=== PATIENT | female | born 1930 | race Caucasian/White ===

== ENCOUNTER 2019-02-12 20:53 | Inpatient (IN) ==
[2019-02-12] MEDS ORDERED: ZOFRAN IV PRN (21:17)
[2019-02-12 22:01] LABS: BASO# 0.01 X1000 (0.0-0.2); BASO% 0.1 % (0.0-0.8); HEMATOCRIT 33.7 % (37.0-47.0); HEMOGLOBIN 10.9 g/dL (12.0-16.0); IMM GRAN# 0.08 X1000 (0.0-0.04); IMM GRAN% 0.8 % (0.0-0.5); LYMPH# 1.08 X1000 (1.2-3.4); LYMPH% 11.1 % (20.5-51.1); MCH 25.7 PG (27-31); MCHC 32.3 g/dL (33-37); MCV 79.5 FL (81-99); MONO# 0.81 X1000 (0.11-0.59); MONO% 8.4 % (1.7-9.3); MPV 8.9 FL (7.4-10.4); NEUT# 7.71 X1000 (1.4-6.5); NEUT% 79.6 % (42.2-75.2); PLT 272 X1000 (130-400); RBC 4.24 XMIL (4.2-5.4); RDW 16.2 % (11.5-14.5); WBC 9.69 X1000 (4.8-10.8)
[2019-02-12 22:33] LABS: AGAP 12; BUN 18 mg/dL (8-22); CALCIUM 9.9 mg/dL (8.8-10.2); CHLORIDE 111 mmol/L (98-107); COSMO 288; CREATININE 0.6 mg/dL (0.5-0.9); ESTIMATED GFR > 60; GLUCOSE 121 mg/dL (70-104); MAGNESIUM 1.7 mg/dL (1.5-2.7); PHOSPHORUS 3.5 mg/dL (2.7-4.5); SODIUM 143 mmol/L (136-145); TCO2 20 mmol/L (25-35)
[2019-02-12 22:34] LABS: POTASSIUM 2.4 mmol/L (3.5-5.1)
[2019-02-12] MEDS: POTASSIUM CHLORIDE 20 MEQ in LR 1,000 ML IV SCH (22:54)
[2019-02-12] MEDS ORDERED: KLOR-CON PO ONE (23:06)
[2019-02-13] MEDS: POTASSIUM CHLORIDE 20 MEQ/SWI 20 MEQ/100 ML IVPB IV SCH ×2 (00:50→03:15)
[2019-02-13 02:23] LABS: URINE SOURCE CATH
[2019-02-13 03:06] LABS: BILIRUBIN URINE NEGATIVE (NEGATIVE); BLOOD URINE TRACE (NEGATIVE); COLOR ORANGE; GLUCOSE URINE NEGATIVE (NEGATIVE); KETONE URINE NEGATIVE (NEGATIVE); LEUKOCYTES URINE MODERATE (NEGATIVE); NITRITE URINE NEGATIVE (NEGATIVE); PROTEIN URINE 30 mg/dL (NEGATIVE); TURBIDITY URINE HAZY (CLEAR); UR EPITHELIAL CELLS <10 /HPF (<10); URINE BACTERIA 4+ /HPF; URINE RBC <10 /HPF (<10); URINE WBC TNTC /HPF (<10); UROBILINOGEN URINE NORMAL (NORMAL)
--- NOTE | 2019-02-13 05:15 | Diag Imaging Result Doc PS360 ---
EXAM: CHEST-PORTABLE HISTORY: diminished bilateral bases TECHNIQUE: Portable chest single view COMPARISON: None. FINDINGS: Poor inspiratory effort. There is a left-sided PICC line. The tip is near limits. Vena cava. The heart is not enlarged. Small pleural effusions with basilar atelectasis and possibly and underlying infiltrate in the left base. Mild pulmonary edema. IMPRESSION: Pulmonary edema with basilar atelectasis and possibly underlying infiltrates. Electronically signed by Sean Kothari 02/13/2019 5:12 AM
--- NOTE | 2019-02-13 06:40 | HISTORY AND PHYSICAL ---
ADDENDUM REPORT: Ms. Israel was admitted to [facility] in mid January where she has remained because of persistent diarrhea with no resolution. Underwent a colonoscopy which showed patchy colitis. She is being referred to [facility] because 1) there is no medical authorization specialist at [facility] and 2) it is believed that the patient has relationship with one of our medical authorization specialist, Dr. Lau Currently the patient is weak and lethargic and she had a total of five loose, nonbloody stools today. She does admit to having diffuse abdominal pain. No nausea or vomiting today. She was started on steroids and they report that the diarrhea has started to slow down. The patient has not had any fevers or chills. Lab work is still pending. White count is 9000, hemoglobin and hematocrit is 11 and 33, and platelets 272,000. Chemistries pending. I have reviewed the patient's prior home medications to see if this is what incited the diarrhea but this is unrevealing. 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 Workup for a vipoma I believe was initiated at [facility] and we should pursue records of those tests. In the meantime we will try placing on Welchol, which may induce constipation transiently. Continue the Imodium p.r.n. Correct any electrolyte derangements. Try and stay away from PPIs as they can exacerbate diarrhea in and of themselves for now. cc: Haleigh Lobo MD MTDD
[2019-02-13 06:48] LABS: HEMOGLOBIN 11.1 g/dL (12.0-16.0); IMM GRAN# 0.06 X1000 (0.0-0.04); IMM GRAN% 0.6 % (0.0-0.5); LYMPH# 1.35 X1000 (1.2-3.4); LYMPH% 12.5 % (20.5-51.1); MCH 25.5 PG (27-31); MCHC 31.7 g/dL (33-37); MCV 80.3 FL (81-99); MONO# 1.11 X1000 (0.11-0.59); MONO% 10.3 % (1.7-9.3); MPV 9.2 FL (7.4-10.4); NEUT# 8.27 X1000 (1.4-6.5); NEUT% 76.6 % (42.2-75.2); PLT 258 X1000 (130-400); RBC 4.36 XMIL (4.2-5.4); RDW 16.3 % (11.5-14.5); WBC 10.79 X1000 (4.8-10.8)
[2019-02-13 07:12] LABS: AGAP 9; ALB/GLOB RATIO 1.3; ALBUMIN 3.1 g/dL (3.5-5.0); ALKALINE PHOSPHATASE 77 U/L (32-104); BUN 17 mg/dL (8-22); CALCIUM 9.8 mg/dL (8.8-10.2); CHLORIDE 112 mmol/L (98-107); COSMO 283; CREATININE 0.6 mg/dL (0.5-0.9); ESTIMATED GFR > 60; GLUCOSE 105 mg/dL (70-104); GOT 11 U/L (10-30); GPT 7 U/L (10-36); MAGNESIUM 1.7 mg/dL (1.5-2.7); POTASSIUM 3.2 mmol/L (3.5-5.1); SODIUM 141 mmol/L (136-145); TCO2 20 mmol/L (25-35); TOTAL PROTEIN 5.5 g/dL (6.3-8.3)
[2019-02-13 12:06] LABS: IRON SATURATION 31 %; TIBC 133 ug/dL; TOTAL IRON 41 ug/dL (49-151); UNBOUND IRON 92 ug/dL (112-346)
[2019-02-13] MEDS: WELCHOL PO SCH ×3 (12:29→18:27)
[2019-02-13] MEDS: POTASSIUM CHLORIDE 20 MEQ in LR 1,000 ML IV SCH (12:30)
--- NOTE | 2019-02-13 14:03 | PROGRESS NOTE ---
DATE: 02/13/2019 INTERVAL HISTORY: Mrs. Israel was transferred from an outside facility for gastroenterology evaluation. She continues to have diarrhea. Apparently, she was diagnosed with transverse colitis in January 2019 and was admitted at outside hospital. She was treated with intravenous antibiotics and was discharged home. 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 She was started on p.o. vancomycin, probiotics and octreotide. Stool studies were negative. She underwent colonoscopy and a biopsy. The colonoscopy had detected mild patchy colitis from hepatic flexure to sigmoid colon and a biopsy suggested colitis. She was also started on octreotide and probiotics, but her diarrhea continued and so she was sent to [facility] for gastroenterology evaluation. SUBJECTIVE: The patient speaks a little. She usually answers in yes or no. She is alert. The patient's sister is at bedside. The patient had one soft liquidy bowel movement in the morning time. However, at nighttime, she has had 4 such bowel movements. VITALS: Detect temperature 98.3 degrees, pulse 69, respiratory rate 14, blood pressure 160/60, saturating 100% on nasal cannula. PHYSICAL EXAMINATION: General: Does not appear in any acute distress. HEENT: Oral cavity, tongue has significant coating with blackish pigmentation. Oral cavity is dry Lungs: Air entry bilaterally equal. No wheeze, rhonchi ,crackles. S1, S2 normal. No murmur or gallop. Abdomen: Distended with gas. Active bowel sounds. No hepatosplenomegaly. Nontender. No lower extremity edema. LABS: Suggestive of normal WBC count, microcytic anemia, normal platelet count, hypokalemia, hyperchloremia. Iron studies suggest that she has replete with iron stores. She does have pyuria. MICROBIOLOGY: Urine culture is in lab. Stool studies have been collected. IMAGING: Chest x-ray on admission had some pulmonary edema with basilar atelectasis and underlying infiltrate, but the patient is not complaining of chest pain or shortness of breath. ASSESSMENT AND PLAN: 1. Persistent diarrhea with CT scan at outside facility and colonoscopy suggestive of colitis affecting transverse colon and descending colon up to sigmoid colon junction despite intravenous antibiotic treatment in earlier January 2019 for suspected diverticulitis. I will follow up with stool studies. We will start her on symptomatic treatment for diarrhea with intravenous fluids and Welchol or colesevelam. Appreciate Gastroenterology recommendation. At outside hospital worker workup for VIPoma was initiated, however, my suspicion is less considering the age distribution of VIPoma. I will also start her on intravenous nutrition since her p.o. intake has significantly gone down. I will consult dietitian. 2. Hypokalemia, being repleted. 3. Iron deficiency anemia. Currently, iron stores are replete. I will monitor CBC. 4. Essential hypertension. I will start antihypertensive medication 5. Suspected dementia, aware. 6. On review of her home medications, it did not seem she was on something that would cause diarrhea. 7. Plan of care discussed with the patient's sister at bedside. All of her questions have been answered. Her daughter who I assume is a surrogate decision maker was not available. cc: Michael Patel MD MTDD
[2019-02-13] MEDS: THERA M PLUS PO SCH (15:25)
[2019-02-13] MEDS: KLOR-CON PO SCH ×2 (15:25→23:37)
[2019-02-13] MEDS: CULTURELLE PO SCH ×2 (15:25→23:37)
[2019-02-13] MEDS: MAGNESIUM SULFATE 2 GM/S.W.I. 2 GM/50 ML IVPB IV SCH ×2 (15:26→23:37)
[2019-02-13] MEDS: CLINIMIX E 4.25%-5% SOLUTION 1,000 ML IV SCH (15:26)
--- NOTE | 2019-02-13 15:33 | GASTROENTEROLOGY CONSULTATION ---
DATE: 02/13/2019 REASON FOR CONSULTATION: Persistent diarrhea despite management at [facility]. Patient was transferred to [facility] for Gastroenterology consult. HISTORY OF PRESENT ILLNESS: This is an 88-year-old white female who had been at [facility] on 2 different admissions for diarrhea. CT scan during hospitalization had shown colitis. She was treated with antibiotics. She was discharged, but patient continued to have problems and was readmitted. She was treated for hypokalemia. She had a colonoscopy on 02/04/[address] Morton. Findings showed colitis, and she had a colon polyp that was removed. Biopsy was positive for mild chronic colitis. Patient was also treated with budesonide with only minimal improvement. Patient has apparently also had workup for vipoma. I do not see those results. Patient has records scanned into the computer. I have reviewed most of those. Patient had also been treated with Sandostatin drip. Patient received a PICC line. Current medications on discharge from [facility] included Desyrel, Lactinex, Lomotil, Norvasc, Pentasa, potassium, Questran, Solu-Medrol, Zestril, and Zofran. At the time of my evaluation, patient had a sister at the bedside. She states the patient is not eating much. Patient is really not speaking very much, although she is alert and oriented. She is answering with yes and no answers. She does follow commands. She is in no acute distress. She reports some abdominal pain. She is incontinent of stool and wears a diaper. PAST MEDICAL HISTORY: Recent colitis with no improvement, diverticulosis, anemia, questionable diagnosis of myelodysplasia, questionable dementia, GERD, hypertension, arthritis, recurrent urinary tract infections. PAST SURGICAL HISTORY: History of cholecystectomy. The patient had a colonoscopy at [facility] showing colitis. ALLERGIES: Iron causing rash. Morphine causes itching. Penicillin causes rash. Pyridium causes shortness of breath. Sulfonamide antibiotics causing swelling. Bactrim rash. HOME MEDICATIONS: None listed. MEDICATIONS FROM DISCHARGE FROM [facility]: As stated above. SOCIAL HISTORY: No reported tobacco or alcohol use. She lives with her son and daughter. FAMILY HISTORY: She has a grandson with Crohn's disease. No family history of colon cancer. OBJECTIVE: Vital signs: Temperature 98.3 degrees, pulse 69, respirations 14, blood pressure 167/60. Generally, patient is in no acute distress. HEENT: Normocephalic atraumatic. Pupils equal, round, and reactive to light. Sclerae are nonicteric. Abdomen is soft. Positive bowel sounds. Patient reports mild tenderness with palpation. Extremities no lower extremity edema noted. DIAGNOSTIC STUDIES: Hematology: WBC 10.79, hemoglobin 11.1, hematocrit 35.0, MCV 80.3, platelets 258,000. Chemistry: Sodium 141, potassium 3.2, chloride 112, CO2 of 20, BUN 17, creatinine 0.6, glucose 105, calcium 9.8, magnesium 1.7. Iron 41, TIBC 33, percent saturation 31, ferritin 1095. Total bilirubin 0.20, AST 11, ALT 7, alkaline phosphatase 77, albumin 3.1. There are stool studies that are pending. Patient had CT scan at [place] that showed colitis. ASSESSMENT AND PLAN: 1. Persistent diarrhea despite workup and hospitalization at [facility]. She had been treated with Sandostatin, steroids with no real improvement in her symptoms. I believe there was outside workup for vipoma. No results seen in her outside records. 2. Hypokalemia. Receiving current replacement. 3. Anemia. Patient has had multiple workup including CT scans, labs, antibiotic and steriod treatment, sandostatin and colonoscopy at [facility]. She continues to have diarrhea. Further stool studies have been ordered, waiting on collection and results. Reviewing records at [facility]. I have discussed this case with Dr. Lau. He will see the patient, and further plans will be made as needed. Thank you for this consultation. Dictated by JACI Ching for Shawn Lau MD cc: JACI Driver MD [facility]
--- NOTE | 2019-02-13 22:02 | HISTORY AND PHYSICAL ---
PRIMARY CARE PHYSICIAN: Annalee Tavares MD DATE AND TIME: 02/12/2019 at 2100. CHIEF COMPLAINT: Abdominal pain and diarrhea. HISTORY OF PRESENT ILLNESS: Ms. Israel is an 88-year-old female who was transferred from [facility]. Since mid January she has had 2 inpatient admissions for persistent diarrhea and electrolyte abnormalities, which family include continued problems with hypokalemia and colitis. Despite the patient receiving initial IV antibiotics, she still did have colitis showing on repeat CT. She has completed now a full course of oral vancomycin which was 250 mg 4 times a day. She did have a CT of the abdomen and pelvis performed during her hospitalization that showed long-segment transverse colitis which was thought to be infectious or inflammatory. Pseudomembranous or ischemic etiologies were thought to be less likely. She underwent colonoscopy with biopsy. She also had a partial colon polyp removed. Her biopsy results returned only positive for colitis. There was no mention of inflammatory bowel disease. She was started on budesonide, with minimal improvement. Most recently, she was started on Solu- Medrol which has reported to mildly improve her diarrhea as of present. There also is currently awaiting results for a workup for vipoma. Unfortunately, due to her diarrhea she still continues to have problems with abnormal electrolytes which include magnesium and hypokalemia. She did have a PICC line placed for anticipation that she may need TPN in the future. Unfortunately they did not have a gastroenterology consultation available at [facility] and she did have a transfer arranged to come here for consultation with Dr. Lau. The patient's daughter was present at bedside. Her name is Maritza. Upon evaluation the patient is resting in the inpatient bed. She is in no acute distress. She is alert and oriented to person and place, though not time. She is somewhat somnolent, but is awake and alert. She is able to follow commands. She does report that she is still having some diffuse abdominal pain as well as diarrhea. She denies any headache, dizziness, chest pain, shortness of breath or cough. She denies any nausea or vomiting. Though she is having diarrhea, this is of brown color. She denies any black or bloody stools. She denies any dysuria or urinary frequency. She has no reported pain or swelling in her extremities. The patient's daughter does report, unfortunately, due to her diarrhea she does have some skin irritation on her buttocks that they have been treating with what sounds to be Calmoseptine ointment. At this time the patient will be placed on inpatient for admission. REVIEW OF SYSTEMS: A 14-point review of systems was conducted with the patient and all were negative except for pertinent positives mentioned in the above HPI. PAST MEDICAL HISTORY: 1. Recurrent colitis with as previously mentioned, 2 admissions since January. 2. Diverticulosis. 3. 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 4. Hypertension. 5. Gastroesophageal reflux disease. 6. Chest wall infection in 2010. 7. Questionable dementia. 8. Osteoarthritis. 9. Recurrent urinary tract infections for which she was previously on methenamine. PAST SURGICAL HISTORY: 1. Cholecystectomy in 2011. 2. Total of what sounds to be 2 colonoscopies, with one in 2010 and one just recently during her admission on 02/04/2019. 3. EGD. SOCIAL HISTORY: The patient is a . She was a housewife. She does live with her son. Her daughter is present at bedside. She has no known history of tobacco, alcohol or illicit drug use. She denies any previous need for ambulatory assistance, CPAP nebulized and/or home oxygen prior to her admission to the hospital. She uses [facility] in [place]. FAMILY HISTORY: 1. Positive for her mother having hypertension. Her father had lung cancer. He used smokeless tobacco. 2. Her brother had mouth and lung cancer. He used smokeless tobacco. 3. Her sister had type 2 diabetes. 4. She has another sister who has had a history of heart attack with stent placement. ALLERGIES: 1. The patient has allergies to Bactrim, which causes her to have chest pain and rash. 2. Sulfa which causes swelling and chest pain. 3. Morphine which causes nervousness, rash and itching. 4. Penicillin, which causes rash. 5. Pyridium which causes "funny feeling in my chest." 6. Venofer which causes rash; however, the patient tolerates oral iron supplements. LABORATORY DATA: White blood cell count is 9690, hemoglobin 10.9, hematocrit 33.7, platelet count is 272,000. Sodium 143, potassium 2.4, chloride 111, serum bicarbonate is 20, BUN 18, creatinine 0.6, glucose 121, calcium 9.9, phosphorus 3.5, magnesium 1.7. Urinalysis was obtained via catheterization and showed protein, trace blood, moderate leukocytes, ggy-oopqvwqv-sp-count white blood cells and 4+ bacteria. DIAGNOSTIC DATA: Chest x-ray did show pulmonary edema with basilar atelectasis and possible underlying infiltrate. This is per Radiology. We are awaiting a EKG to be performed. PHYSICAL EXAMINATION: VITAL SIGNS: Temperature 97.7 degrees, heart rate 83, respirations 18, blood pressure 174/65, oxygen saturation is 98% nasal cannula at 2 L. GENERAL: Ms. Israel is a pleasant 88-year-old female. She was resting in the inpatient bed. She was in no acute distress. She was awake, alert and oriented to person and place, though not time. She was able to answer questions and follow commands, though was somewhat somnolent. HEENT: Head is atraumatic, normocephalic. Pupils equal, round and reactive to light, were 3 mm bilaterally and brisk. Oral mucosa is slightly dry. Oropharynx is clear. NECK: Supple. Trachea midline. No overt JVD noted upon examination. CARDIOVASCULAR: The patient had S1, S2 present. No murmurs, gallops or rubs appreciated, with a regular rate and rhythm. PULMONARY: The patient has symmetrical chest expansion bilaterally. Lung sounds are clear to auscultation in bilateral upper lung steven. They were slightly diminished in bilateral bases, though. The patient was not taking good expiratory breath. Unfortunately this may be secondary to that. ABDOMEN: Soft, though diffusely tender. Bowel sounds were present in all 4 quadrants and were hyperactive. EXTREMITIES: No cyanosis, clubbing or edema noted. Pulse, motor and sensory were intact in all extremities. Radial pulses and pedal pulses were 2+ bilaterally. SKIN: [place], warm and dry. She did have decreased skin turgor noted. NEUROLOGICAL: The patient is alert and oriented to person and place, not time. She is able to move all extremities. She is able to follow commands. There may be some underlying dementia. Though other than this, there did not appear to be any focal neurological deficits noted. ASSESSMENT AND PLAN: 1. Colitis. The patient has a previously received a round of intravenous antibiotics and has just completed a round of oral vancomycin. She is still reporting some diffuse abdominal pain and is still having diarrhea, though reportedly the Solu-Medrol they had initiated at [place] had slowed her diarrhea down somewhat, though she has had 5 nonbloody bowel movements today. Given this, we will place the patient on Welchol to try to slow her diarrhea somewhat. We have placed a consult with Dr. Lau with Gastroenterology. We will await his evaluation and further recommendations for management. All of her records from [facility] are on the patient's chart and available for viewing, which included her CT abdomen and pelvis, colonoscopy and biopsy reports as well as pertinent laboratory results with history and physical, discharge summary, progress notes as well as consultations. Please see those for further detailed information about her admission at [facility]. 2. Diarrhea. As previously mentioned, the patient has been Clostridium difficile negative. We will start her on some Welchol to try to slow her diarrhea down some. We will continue with intravenous hydration and monitor her electrolytes closely. 3. Fluid volume depletion. This is likely secondary to her persistent diarrhea. We will continue with intravenous fluid hydration. There was some mention of pulmonary edema with bibasilar atelectasis and possibly underlying infiltrates, though at this time the patient does not have any reported respiratory symptoms. She has no cough, no shortness of breath. She did have some slightly diminished lung sounds in bilateral bases, though the patient is not taking good inspiratory effort. We will continue to monitor her fluid volume status closely. We will implement frequent turn, cough and deep breathing as well as incentive spirometry, and monitor her respiratory status closely for any signs of fluid overload. 4. Hypokalemia. This is likely secondary to her diarrhea. We will monitor this closely. The fluids we have ordered do have 20mEq of potassium chloride, though we will provide additional potassium supplementation. Her most recent potassium we have just drawn was 2.4. We did give her 40 mg intravenous potassium as well as 40 mg oral. We will recheck this in the morning. She is on continuous cardiac telemetry, though she is hemodynamically stable at this time. 5. Asymptomatic bacteriuria. The patient does have a history of having frequent urinary tract infections, and previously mentioned prior to her admission she was on methenamine. At this time she is asymptomatic, though we have placed a urine culture and will await those results and continue to follow. She does not have any leukocytosis at this time and she has been afebrile. The patient has been placed on the medical floor with telemetry. She will have vital signs every 4 hours. We will do strict intake and output. Deep venous thrombosis prophylaxis will be provided with sequential compression devices. She will be NPO at this time until evaluated by Gastroenterology. As previously mentioned, there was noted on her chest x-ray to be pulmonary edema with bibasilar atelectasis and possible underlying infiltrates. The patient does appear to be dehydrated. We will continue with intravenous hydration. We will closely monitor her fluid volume status and her respiratory status. Further orders and recommendations pending hospital course, diagnostic studies and physician evaluation. Dictated by JACI Wong for Haleigh Lobo MD cc: Haleigh Lobo MD MTDD
[2019-02-14] MEDS: CLINIMIX E 4.25%-5% SOLUTION 1,000 ML IV SCH ×2 (03:28→14:33)
[2019-02-14 06:55] LABS: BASO# 0.01 X1000 (0.0-0.2); BASO% 0.1 % (0.0-0.8); HEMATOCRIT 34.2 % (37.0-47.0); HEMOGLOBIN 10.7 g/dL (12.0-16.0); IMM GRAN# 0.06 X1000 (0.0-0.04); IMM GRAN% 0.5 % (0.0-0.5); LYMPH# 1.13 X1000 (1.2-3.4); LYMPH% 9.1 % (20.5-51.1); MCH 25.2 PG (27-31); MCHC 31.3 g/dL (33-37); MCV 80.7 FL (81-99); MONO# 1.34 X1000 (0.11-0.59); MONO% 10.7 % (1.7-9.3); MPV 8.9 FL (7.4-10.4); NEUT# 9.93 X1000 (1.4-6.5); NEUT% 79.6 % (42.2-75.2); PLT 228 X1000 (130-400); RBC 4.24 XMIL (4.2-5.4); RDW 16.2 % (11.5-14.5); WBC 12.47 X1000 (4.8-10.8)
[2019-02-14 07:28] LABS: AGAP 11; BUN 25 mg/dL (8-22); CALCIUM 9.2 mg/dL (8.8-10.2); CHLORIDE 108 mmol/L (98-107); COSMO 286; CREATININE 0.4 mg/dL (0.5-0.9); ESTIMATED GFR > 60; GLUCOSE 167 mg/dL (70-104); MAGNESIUM 2.7 mg/dL (1.5-2.7); POTASSIUM 3.1 mmol/L (3.5-5.1); SODIUM 139 mmol/L (136-145); TCO2 20 mmol/L (25-35)
[2019-02-14] MEDS: CULTURELLE PO SCH ×2 (08:12→21:16)
[2019-02-14] MEDS: THERA M PLUS PO SCH (08:12)
[2019-02-14] MEDS: WELCHOL PO SCH ×3 (08:12→17:13)
[2019-02-14] MEDS: ZINC SULFATE PO SCH (08:19)
--- NOTE | 2019-02-14 16:03 | GASTROENTEROLOGY PROGRESS NOTE ---
DATE: 02/14/2019 SUBJECTIVE: The patient was resting comfortably. She just had her breakfast. From nursing note, it appears that she had only 1 brown stool since yesterday. I spoke to the nurse and she tells me that she has not had any diarrhea. The patient herself was confused and did not report any GI problems. She was complaining of leg discomfort and pain. OBJECTIVE: Vital signs: Temperature was 98.2 degrees, pulse is 70 per minute, breathing 20 and blood pressure 162/53. Abdomen: Full, soft, nontender. Bowel sounds are audible. LABS REVIEWED: Show WBC of 12.47, hemoglobin 10.7, hematocrit 34.2, MCV 80.7 and platelets were 228. Sodium 139, potassium has gone down to 3.1, chloride 108, bicarbonate is 25, creatinine 0.4. Transaminases are normal. IMPRESSION: Diarrhea. From the information that I have received at the hospital from the nurses, it appears that she has not had any diarrhea, but I have advised the nurses to notice and report if she continues to have any evidence of diarrhea. At this point, I will continue the current treatment. Her records from [facility] was reviewed. I did not see any finding except for colitis that was noted on the imaging studies and the biopsy was nonspecific. At this point, no new changes. I do not think she has secretory diarrhea that would be VIPoma or other secretory hormones that would cause that, but she had evidence of colitis that was evident on imaging study that I see, and biopsy also confirmed most likely an infection. She had infectious colitis and has had diarrhea from that. That would be my working diagnosis and I would continue current treatment pending any report of diarrhea or any problems from here on. cc: Shawn Lau MD
[2019-02-14] MEDS: TYLENOL PO PRN (17:13)
--- NOTE | 2019-02-14 17:58 | PROGRESS NOTE ---
DATE: 02/14/2019 SUBJECTIVE: Today Ms. Israel refers to be feeling a little better. Still has bowel movements and abdominal discomfort. The daughter was at the bedside at the time of the encounter. OBJECTIVE: Vital signs: Blood pressure is 162/62, pulse is 75, respirations 16, temperature 97.6 degrees. General: Ms. Israel is an 88-year-old female. She is in bed, no distress. HEENT: Mucosa is pink and moist. Anicteric. Acyanotic. Neck: Supple. Chest: Good air entry bilaterally. No crepitations. No rhonchi. Cardiovascular: Regular rate and rhythm. No murmurs. No rubs. No gallops. Abdomen: Soft. Minimally tender in the epigastrium. Bowel sounds are present. Extremities: No pedal edema. Distal pulses are present. RN PALLIATIVE CARE: Patient is awake, alert, and oriented. There is no focal neurological deficit. LABORATORY DATA: WBC is 12.47, hemoglobin is 10.7, platelet count of 228,000. Chemistry is also reviewed. Potassium is 3.1, phosphorus is 2.0. Medications have all been reviewed. ASSESSMENT AND PLAN: 1. Subacute to chronic watery diarrhea. Etiology is unclear. Previous CT scan from outside facility seems to suggest colitis. A colonoscopy pathology report seems to have been nonspecific. GI has been consulted. We are going to follow up on their further recommendations. For now, the patient is not on any more antibiotics. We will get inflammatory markers and also TSH to rule out any thyroid disease. I understand outside facility workup for [facility] was initiated. We will follow up accordingly. 2. Hypokalemia with hypophosphatemia, likely due to gastrointestinal loss. We are going to continue to replace and also do a TSH to rule out any subclinical hyperthyroidism. 3. Iron deficiency anemia. 4. 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 5. Chronic recurrent urinary tract infections. cc: Guido Chen MD
[2019-02-15] MEDS: TYLENOL PO PRN ×3 (03:06→18:26)
[2019-02-15] MEDS: CLINIMIX E 4.25%-5% SOLUTION 1,000 ML IV SCH ×5 (03:06→23:29)
[2019-02-15] MEDS: LABETALOL IV PRN (03:17)
[2019-02-15 06:38] LABS: BASO# 0.01 X1000 (0.0-0.2); BASO% 0.1 % (0.0-0.8); HEMOGLOBIN 9.9 g/dL (12.0-16.0); IMM GRAN# 0.07 X1000 (0.0-0.04); IMM GRAN% 0.5 % (0.0-0.5); LYMPH# 0.79 X1000 (1.2-3.4); LYMPH% 5.2 % (20.5-51.1); MCH 25.5 PG (27-31); MCHC 31.9 g/dL (33-37); MCV 79.9 FL (81-99); MONO% 10.5 % (1.7-9.3); MPV 9.3 FL (7.4-10.4); NEUT% 83.7 % (42.2-75.2); PLT 189 X1000 (130-400); RBC 3.88 XMIL (4.2-5.4); WBC 15.17 X1000 (4.8-10.8)
[2019-02-15 07:16] LABS: AGAP 9; ALBUMIN 2.7 g/dL (3.5-5.0); ALKALINE PHOSPHATASE 70 U/L (32-104); BUN 38 mg/dL (8-22); CALCIUM 8.9 mg/dL (8.8-10.2); CHLORIDE 104 mmol/L (98-107); COSMO 284; CREATININE 0.6 mg/dL (0.5-0.9); ESTIMATED GFR > 60; GLUCOSE 187 mg/dL (70-104); GOT 12 U/L (10-30); GPT 10 U/L (10-36); POTASSIUM 2.6 mmol/L (3.5-5.1); SODIUM 135 mmol/L (136-145); TCO2 22 mmol/L (25-35); TOTAL BILIRUBIN 0.29 mg/dL (0.20-1.00); TOTAL PROTEIN 5.4 g/dL (6.3-8.3)
[2019-02-15 09:01] LABS: MAGNESIUM 2.2 mg/dL (1.5-2.7); PHOSPHORUS 3.4 mg/dL (2.7-4.5)
[2019-02-15] MEDS: THERA M PLUS PO SCH (09:47)
[2019-02-15] MEDS: WELCHOL PO SCH ×3 (09:47→16:52)
[2019-02-15] MEDS: ZINC SULFATE PO SCH (09:47)
[2019-02-15] MEDS: CALMOSEPTINE OINTMENT TOP PRN (09:47)
[2019-02-15] MEDS: CULTURELLE PO SCH ×2 (09:47→23:04)
[2019-02-15] MEDS ORDERED: POTASSIUM CHLORIDE 60 MEQ in NS 500 ML IV ONE (13:40)
--- NOTE | 2019-02-15 14:18 | GASTROENTEROLOGY PROGRESS NOTE ---
DATE: 02/15/2019 SUBJECTIVE: The patient was lying in bed in no acute distress. No family was at the bedside at the time of my evaluation. Nurse tech was at the bedside. She states she has had 3 orange- colored, foul-smelling, watery stools. The patient currently denies abdominal pain. She is not eating much. OBJECTIVE: Vital Signs: Temperature 98.1 degrees, pulse 103, respirations 15 blood pressure 133/46. General: Patient was awake and alert. No acute distress. Abdomen: Soft, nontender with palpation at present time. LABORATORY DATA: Hematology: WBC 15.17, hemoglobin 9.9, hematocrit 31.0, MCV 79.9, platelet 189,000. Chemistry: Sodium 135, potassium 2.6, chloride 104, CO2 of 22, BUN 38, creatinine 0.6, glucose 187. C-reactive protein 25.73. Vitamin A was normal. TSH 1.28. ASSESSMENT AND PLAN: 1. Persistent diarrhea. The patient has had multiple workup beginning at [facility]. She had a colonoscopy with pathology showing nonspecific colitis. She has been treated with antibiotics. Recommend to continue antibiotics for now. 2. Electrolyte imbalance. Continue replacement. Dictated by JACI Ching for Shawn Lau MD cc: JACI Driver MD
[2019-02-15] MEDS: DIFICID PO SCH ×2 (15:37→23:04)
--- NOTE | 2019-02-15 21:22 | PROGRESS NOTE ---
DATE: 02/15/2019 SUBJECTIVE: The patient is resting comfortably in bed. She has continued to have diarrhea. OBJECTIVE: Vital Signs: Temperature 98.3 degrees General: This is a chronically ill- appearing, elderly female lying in bed, in no acute distress. Heart: S1, S2 normal. Regular rate and rhythm. Lungs: Clear to auscultation bilaterally. Abdomen: Positive bowel sounds. Soft, nontender, nondistended. Extremities: No edema. No cyanosis. Neurologic: The patient is awake, but nonverbal. LABORATORY DATA: White blood cell count 15, hemoglobin 9.9, hematocrit 31, platelets 189,000. Sodium 135, potassium 2.6, chloride 104, CO2 is 22, BUN 38, creatinine 0.6, glucose 187. AST 12, ALT 10, alkaline phosphatase 70, albumin 2.7. ASSESSMENT AND PLAN: 1. Colitis. Unchanged. Gastroenterology is following. Continue with antibiotic therapy. 2. Urinary tract infection secondary to Escherichia coli. We will repeat the urinalysis to be sure that the urinary tract infection is resolved. 3. Hypokalemia. We will replace the patient's potassium. 4. Leukocytosis. The patient's white blood cell count is increasing. We will order blood cultures. 5. Anemia. We will monitor the hemoglobin and hematocrit closely. cc: Madeline Moffett MD MTDD
[2019-02-16] MEDS: CLINIMIX E 4.25%-5% SOLUTION 1,000 ML IV SCH ×3 (00:51→12:05)
[2019-02-16 06:49] LABS: BASO# 0.01 X1000 (0.0-0.2); BASO% 0.1 % (0.0-0.8); HEMATOCRIT 31.2 % (37.0-47.0); HEMOGLOBIN 9.9 g/dL (12.0-16.0); IMM GRAN% 0.7 % (0.0-0.5); LYMPH% 7.1 % (20.5-51.1); MCH 25.6 PG (27-31); MCHC 31.7 g/dL (33-37); MCV 80.8 FL (81-99); MONO# 1.54 X1000 (0.11-0.59); MONO% 10.9 % (1.7-9.3); MPV 10.3 FL (7.4-10.4); NEUT# 11.47 X1000 (1.4-6.5); NEUT% 81.2 % (42.2-75.2); PLT 181 X1000 (130-400); RBC 3.86 XMIL (4.2-5.4); RDW 16.3 % (11.5-14.5); WBC 14.12 X1000 (4.8-10.8)
[2019-02-16 07:26] LABS: AGAP 8; ALBUMIN 2.8 g/dL (3.5-5.0); BUN 38 mg/dL (8-22); C REACTIVE PROT QUANT 174.41 mg/L (0.00-5.00); CALCIUM 8.6 mg/dL (8.8-10.2); CHLORIDE 107 mmol/L (98-107); COSMO 284; CREATININE 0.5 mg/dL (0.5-0.9); ESTIMATED GFR > 60; GLUCOSE 153 mg/dL (70-104); MAGNESIUM 2.1 mg/dL (1.5-2.7); SODIUM 136 mmol/L (136-145); TCO2 21 mmol/L (25-35)
--- NOTE | 2019-02-16 07:51 | Diag Imaging Result Doc PS360 ---
EXAM: CHEST-PORTABLE 02/16/2019 HISTORY: dyspnea TECHNIQUE: AP portable upright at 0724 COMMENT: There is apical pleural thickening bilaterally. There is platelike atelectasis in the right upper lobe which was not present on 02/12/2019. There is some clearing of platelike atelectasis in the left base. There may be a small left pleural effusion. IMPRESSION: Subsegmental atelectasis in the right upper and left lower lobes. Left pleural effusion. Electronically signed by Gianluca Lackey 02/16/2019 7:48 AM
[2019-02-16] MEDS ORDERED: POTASSIUM CHLORIDE 60 MEQ in NS 500 ML IV ONE (07:55)
[2019-02-16 08:04] LABS: SED RATE 55 mm/hr (0-20)
[2019-02-16] MEDS: ZINC SULFATE PO SCH (12:04)
[2019-02-16] MEDS: THERA M PLUS PO SCH (12:04)
[2019-02-16] MEDS: CULTURELLE PO SCH ×2 (12:04→22:26)
[2019-02-16] MEDS: WELCHOL PO SCH ×3 (12:04→18:08)
[2019-02-16] MEDS: DIFICID PO SCH ×2 (12:05→22:26)
[2019-02-16] MEDS ORDERED: CLINIMIX E 4.25%-5% SOLUTION 1,000 ML IV SCH (12:58)
[2019-02-16 13:00] LABS: URINE SOURCE CATH
[2019-02-16] MEDS: TYLENOL PO PRN (13:00)
[2019-02-16 13:02] LABS: BILIRUBIN URINE NEGATIVE (NEGATIVE); BLOOD URINE NEGATIVE (NEGATIVE); COLOR YELLOW; GLUCOSE URINE NEGATIVE (NEGATIVE); KETONE URINE NEGATIVE (NEGATIVE); LEUKOCYTES URINE LARGE (NEGATIVE); NITRITE URINE NEGATIVE (NEGATIVE); PH URINE 5.5; PROTEIN URINE NEGATIVE (NEGATIVE); SP GRAVITY URINE 1.009; TURBIDITY URINE HAZY (CLEAR); UROBILINOGEN URINE NORMAL (NORMAL)
[2019-02-16 13:03] LABS: UR EPITHELIAL CELLS <10 /HPF (<10); URINE BACTERIA 4+ /HPF; URINE RBC <10 /HPF (<10); URINE WBC TNTC /HPF (<10)
[2019-02-16] MEDS: AZACTAM 0.5 GM in NS 50 ML IV SCH ×2 (15:17→22:26)
--- NOTE | 2019-02-16 17:12 | GASTROENTEROLOGY PROGRESS NOTE ---
DATE: 02/16/2019 SUBJECTIVE: Patient was resting with eyes closed. She aroused easily, she denied significant complaint. Per intake and output report there is 1 episode of diarrhea reported, we had ordered a more extensive GI stool panel to be sent to [facility] but that has not been collected yet, started Dificid empirically yesterday. OBJECTIVE: Vital Signs: Temperature 97.8 degrees, pulse 81, respirations 20, blood pressure 175/56. General: Patient is awake, alert, no acute distress. Abdomen: Soft, nontender. Positive bowel sounds. LABORATORY: Hematology, WBC 14.12, hemoglobin 9.9, hematocrit 31.2, MCV 80.8, platelet 181,000. Chemistry, sodium 136, potassium 3.0, chloride 107, CO2 21, BUN 38, creatinine 0.5, glucose 153. ASSESSMENT AND PLAN: Persistent diarrhea, patient has had multiple workup with findings of nonspecific colitis. Continue antibiotics, we also empirically added Dificid twice daily, we are waiting on a more extensive stool study panel to be collected and sent to [facility], will continue to follow. Further plans be made according to her progress and findings. I have discussed this case with Dr. Lau. Dictated by JACI Ching for Shawn Lau MD cc: JAIC Driver MD
[2019-02-17] MEDS: AZACTAM 0.5 GM in NS 50 ML IV SCH ×3 (06:01→22:42)
[2019-02-17 07:01] LABS: BASO# 0.01 X1000 (0.0-0.2); BASO% 0.1 % (0.0-0.8); HEMATOCRIT 30.2 % (37.0-47.0); HEMOGLOBIN 9.4 g/dL (12.0-16.0); IMM GRAN# 0.07 X1000 (0.0-0.04); IMM GRAN% 0.6 % (0.0-0.5); LYMPH# 1.03 X1000 (1.2-3.4); LYMPH% 9.5 % (20.5-51.1); MCH 25.7 PG (27-31); MCHC 31.1 g/dL (33-37); MCV 82.5 FL (81-99); MONO# 1.37 X1000 (0.11-0.59); MONO% 12.7 % (1.7-9.3); MPV 10.5 FL (7.4-10.4); NEUT# 8.34 X1000 (1.4-6.5); NEUT% 77.1 % (42.2-75.2); PLT 167 X1000 (130-400); RBC 3.66 XMIL (4.2-5.4); RDW 16.6 % (11.5-14.5); WBC 10.82 X1000 (4.8-10.8)
[2019-02-17 08:25] LABS: AGAP 11; ALBUMIN 2.4 g/dL (3.5-5.0); BUN 32 mg/dL (8-22); CALCIUM 9.9 mg/dL (8.8-10.2); CHLORIDE 109 mmol/L (98-107); COSMO 290; CREATININE 0.5 mg/dL (0.5-0.9); ESTIMATED GFR > 60; GLUCOSE 140 mg/dL (70-104); POTASSIUM 2.8 mmol/L (3.5-5.1); SODIUM 141 mmol/L (136-145); TCO2 21 mmol/L (25-35)
[2019-02-17] MEDS ORDERED: KLOR-CON PO SCH (09:00)
[2019-02-17] MEDS: WELCHOL PO SCH ×4 (09:12→18:44)
[2019-02-17] MEDS: ZINC SULFATE PO SCH (09:12)
[2019-02-17] MEDS: CULTURELLE PO SCH ×4 (09:12→22:48)
[2019-02-17] MEDS: THERA M PLUS PO SCH (09:12)
[2019-02-17] MEDS: DIFICID PO SCH ×4 (09:12→22:47)
[2019-02-17] MEDS: TYLENOL PO PRN (11:01)
[2019-02-17] MEDS: POTASSIUM CHLORIDE 60 MEQ in NS 500 ML IV ONE ×2 (11:04→11:21)
--- NOTE | 2019-02-17 14:17 | GASTROENTEROLOGY PROGRESS NOTE ---
DATE: 02/17/2019 SUBJECTIVE: The patient just had some Ensure and light lunch, and had tolerated her diet well. Her frequency of bowel movements has considerably slowed down. Her daughter was present with her at the bedside. She said she is not having as many number of loose stools that she had while she was in [facility] [place]. The [facility] stool study is pending. OBJECTIVE: Her abdomen is full, soft, nontender. Bowel sounds are audible. IMPRESSION: Diarrhea, etiology most likely infectious. PLAN: She is currently on medications of Dificid and Welchol. I would continue her current treatment while we wait for her results from [facility]. I recommend physical therapy and get her out of the bed. We will follow. cc: Shawn Lau MD
[2019-02-17] MEDS ORDERED: MAGNESIUM SULFATE IV SCH ×9 (17:15)
[2019-02-17] MEDS ORDERED: [UNRECOGNIZED DRUG - OTHER] IV SCH ×9 (17:15)
[2019-02-17] MEDS ORDERED: POTASSIUM CHLORIDE IV SCH ×9 (17:15)
[2019-02-17] MEDS ORDERED: TPN ELECTROLYTES IV SCH ×9 (17:15)
[2019-02-17] MEDS ORDERED: POTASSIUM CHLORIDE 60 MEQ in NS 500 ML IV ONE (19:20)
[2019-02-17] MEDS: LIPOSYN 20% 250 ML IV SCH (19:51)
--- NOTE | 2019-02-17 19:53 | PROGRESS NOTE ---
DATE: 02/17/2019 SUBJECTIVE: The patient is resting comfortably in bed. She is still having diarrhea and is not eating. OBJECTIVE: Vital Signs: Temperature 97.6 degrees, blood pressure 143/50, heart rate 70, respirations 20, O2 saturation 100% on 2 L nasal cannula. General: This is a chronically ill- appearing elderly female lying in bed in no acute distress. Heart: S1, S2 normal. Regular rate and rhythm. Lungs: Equal air entry bilaterally. No crackles, no rales. Abdomen: Positive bowel sounds. Soft, nontender, nondistended. Extremities: The patient has no edema, no cyanosis. Neuro: The patient is awake and able to move all 4 extremities. LABS: White blood cell count 10, hemoglobin 9.4, hematocrit 30, platelets 167,000. Sodium 141, potassium 3.4, chloride 109, CO2 21, BUN 32, creatinine 0.5, glucose 140. ASSESSMENT AND PLAN: 1. Colitis. Continue with Dificid. Gastroenterology is following. 2. Urinary tract infection secondary to Escherichia coli. Continue with cefepime. 3. Severe protein calorie malnutrition. Since the patient is not eating we will initiate TPN. 4. Hypokalemia. Continue with potassium replacement. 5. Leukocytosis. Improved. Continue with antibiotic therapy. 6. Anemia. Stable. 7. Deep vein thrombosis prophylaxis. Will start the patient on Lovenox. cc: Madeline Moffett MD
[2019-02-17] MEDS: LOVENOX SUBQ SCH (22:42)
--- NOTE | 2019-02-18 05:02 | PROGRESS NOTE ---
DATE: 02/16/2019 SUBJECTIVE: The patient is resting in bed. She continues to have liquid stools. OBJECTIVE: Vital Signs: Temperature 98.5 degrees, blood pressure 160/62, heart rate 85, respirations 20, O2 saturation 99% on 2 L nasal cannula. General: This is a chronically ill- appearing elderly female lying in bed in no acute distress. Heart: S1, S2 normal. Regular rate and rhythm. Lungs: Equal air entry bilaterally. No crackles. No rales. Abdomen: Positive bowel sounds. Soft, nontender, nondistended. Extremities: No edema, no cyanosis. Neurologic: The patient is awake but confused. LABS: White blood cell count 14, hemoglobin 9.9, hematocrit 31, platelets 181, sodium 136, potassium 3, chloride 107. CO2 is 21, BUN 38, creatinine 0.5, glucose 158. CRP is 174. UA positive for bacteria, leukocytes and WBCs. ASSESSMENT AND PLAN: 1. The patient has a urinary tract infection. A urine culture was already been obtained. Will start the patient on cefepime and await the culture results. 2. Colitis. Unchanged. Management as per Gastroenterology. The patient is currently on Dificid. 3. Leukocytosis. Continue with antibiotic therapy. 4. Severe protein calorie malnutrition. Continue with Clinimix. 5. Hypokalemia. We will also add scheduled potassium replacement. 6. Anemia. Monitor the hemoglobin and hematocrit closely. cc: Madeline Moffett MD [facility]
[2019-02-18] MEDS: AZACTAM 0.5 GM in NS 50 ML IV SCH ×4 (05:46→23:20)
[2019-02-18 06:42] LABS: BASO# 0.01 X1000 (0.0-0.2); BASO% 0.1 % (0.0-0.8); HEMATOCRIT 33.6 % (37.0-47.0); HEMOGLOBIN 10.4 g/dL (12.0-16.0); IMM GRAN# 0.07 X1000 (0.0-0.04); IMM GRAN% 0.6 % (0.0-0.5); LYMPH# 0.66 X1000 (1.2-3.4); LYMPH% 5.8 % (20.5-51.1); MCH 25.6 PG (27-31); MCV 82.6 FL (81-99); MONO# 1.08 X1000 (0.11-0.59); MONO% 9.5 % (1.7-9.3); MPV 10.3 FL (7.4-10.4); NEUT# 9.55 X1000 (1.4-6.5); PLT 203 X1000 (130-400); RBC 4.07 XMIL (4.2-5.4); RDW 16.5 % (11.5-14.5); WBC 11.37 X1000 (4.8-10.8)
[2019-02-18 07:32] LABS: AGAP 9; ALBUMIN 2.9 g/dL (3.5-5.0); BUN 24 mg/dL (8-22); CALCIUM 9.3 mg/dL (8.8-10.2); CHLORIDE 107 mmol/L (98-107); CHOLESTEROL 131 mg/dL (0-200); COSMO 285; CREATININE 0.5 mg/dL (0.5-0.9); ESTIMATED GFR > 60; GLUCOSE 159 mg/dL (70-104); GOT 17 U/L (10-30); PHOSPHORUS 2.3 mg/dL (2.7-4.5); POTASSIUM 3.5 mmol/L (3.5-5.1); SODIUM 139 mmol/L (136-145); TCO2 23 mmol/L (25-35); TRIGLYCERIDES 138 mg/dL (35-135)
[2019-02-18 08:03] LABS: PREALBUMIN 9.5 mg/dL (20-40)
[2019-02-18] MEDS: DIFICID PO SCH ×2 (08:37→20:23)
[2019-02-18] MEDS: THERA M PLUS PO SCH (08:37)
[2019-02-18] MEDS: WELCHOL PO SCH ×3 (08:37→16:52)
[2019-02-18] MEDS: CULTURELLE PO SCH ×2 (08:37→20:23)
[2019-02-18] MEDS: ZINC SULFATE PO SCH (08:37)
[2019-02-18] MEDS ORDERED: CALMOSEPTINE OINTMENT TOP PRN (10:43)
[2019-02-18] MEDS ORDERED: POTASSIUM CHLORIDE IV SCH ×10 (13:00)
[2019-02-18] MEDS ORDERED: TPN ELECTROLYTES IV SCH ×10 (13:00)
[2019-02-18] MEDS ORDERED: MAGNESIUM SULFATE IV SCH ×10 (13:00)
[2019-02-18] MEDS ORDERED: [UNRECOGNIZED DRUG - OTHER] IV SCH ×10 (13:00)
[2019-02-18] MEDS: LIPOSYN 20% 250 ML IV SCH (16:52)
--- NOTE | 2019-02-18 17:45 | PROGRESS NOTE ---
DATE: 02/18/2019 SUBJECTIVE: The patient has no issues. She is still having data. She is still on TPN. OBJECTIVE: Vital Signs: Blood pressure 158/51. Cardiovascular: Regular rate and rhythm. Pulmonary: Bilateral breath sounds. Clear to auscultation. Gastrointestinal: Soft, nontender. Extremities: She is complaining of a lot of pain in her right leg which I do not have a great explanation for. ASSESSMENT AND PLAN: 1. Colitis which is on Dificid, but is not Clostridium difficile. 2. Escherichia coli urinary tract infection. She is on cefepime for which it is sensitive to. 3. Severe calorie malnutrition. She is on total parenteral nutrition. 4. Anemia, stable. DISPOSITION: Per family request it is home with PT. She has been made a DNR. We will continue to monitor. Disposition I guess pending her status for her hip pain we will work on trying to get that situated. I am going to get a hip film and may get an ultrasound and will see how she does. cc: Jignesh Alexander MD
[2019-02-18] MEDS: MAGNESIUM SULFATE IV SCH ×10 (18:09)
[2019-02-18] MEDS: [UNRECOGNIZED DRUG - OTHER] IV SCH ×10 (18:09)
[2019-02-18] MEDS: TPN ELECTROLYTES IV SCH ×10 (18:09)
[2019-02-18] MEDS: POTASSIUM CHLORIDE IV SCH ×10 (18:09)
--- NOTE | 2019-02-18 18:47 | GASTROENTEROLOGY PROGRESS NOTE ---
DATE: 02/18/2019 SUBJECTIVE: Patient was resting with eyes closed, in no acute distress. Per nurse report, she has had 1 loose stool so far today. OBJECTIVE: Vital Signs: Temperature 97.3, pulse 78, respirations 20, blood pressure 158/51. General: The patient was asleep, in no acute distress. LABORATORY: Hematology: WBC 11.37, hemoglobin 10.4, hematocrit 33.6, MCV 82.6, platelets 203. Chemistry: Sodium 139, potassium 3.5, chloride 107, CO2 of 23, BUN 24, creatinine 0.5, glucose 159. ASSESSMENT AND PLAN: 1. Diarrhea. Stool studies have been negative. 2. Urinary tract infection, Escherichia coli. Continue antibiotics. 3. Severe calorie malnutrition on parenteral nutrition. 4. Colitis. The patient has been treated with antibiotics. The patient has had multiple workups from [facility]. Will continue current medications. We will continue to follow during her hospital course and further plans to be made as needed. So far today, it seemed that she has only had 1 loose stool, but she continues to not eat. Continue parenteral nutrition. I have discussed this case with Dr. Lau. Dictated by JACI Ching for Shawn Lau MD cc: JACI Driver MD
[2019-02-18] MEDS: LOVENOX SUBQ SCH (20:14)
[2019-02-19] MEDS: AZACTAM 0.5 GM in NS 50 ML IV SCH ×3 (05:23→21:23)
[2019-02-19 07:04] LABS: HEMATOCRIT 27.1 % (37.0-47.0); HEMOGLOBIN 8.5 g/dL (12.0-16.0); IMM GRAN# 0.03 X1000 (0.0-0.04); IMM GRAN% 0.3 % (0.0-0.5); LYMPH# 0.79 X1000 (1.2-3.4); LYMPH% 8.3 % (20.5-51.1); MCH 25.9 PG (27-31); MCHC 31.4 g/dL (33-37); MCV 82.6 FL (81-99); MONO# 1.18 X1000 (0.11-0.59); MONO% 12.5 % (1.7-9.3); MPV 10.1 FL (7.4-10.4); NEUT# 7.47 X1000 (1.4-6.5); NEUT% 78.9 % (42.2-75.2); PLT 202 X1000 (130-400); RBC 3.28 XMIL (4.2-5.4); RDW 16.3 % (11.5-14.5); WBC 9.47 X1000 (4.8-10.8)
[2019-02-19 07:23] LABS: AGAP 8; ALB/GLOB RATIO 0.7; ALBUMIN 2.4 g/dL (3.5-5.0); ALKALINE PHOSPHATASE 246 U/L (32-104); BUN 22 mg/dL (8-22); CALCIUM 9.1 mg/dL (8.8-10.2); CHLORIDE 108 mmol/L (98-107); COSMO 283; CREATININE 0.5 mg/dL (0.5-0.9); ESTIMATED GFR > 60; GLUCOSE 162 mg/dL (70-104); GOT 24 U/L (10-30); GPT 25 U/L (10-36); MAGNESIUM 1.8 mg/dL (1.5-2.7); PHOSPHORUS 2.7 mg/dL (2.7-4.5); POTASSIUM 2.9 mmol/L (3.5-5.1); SODIUM 138 mmol/L (136-145); TCO2 22 mmol/L (25-35); TOTAL PROTEIN 5.8 g/dL (6.3-8.3)
[2019-02-19] MEDS ORDERED: MAGNESIUM SULFATE 2 GM/S.W.I. 2 GM/50 ML IVPB IV ONE (08:00)
[2019-02-19] MEDS: DIFICID PO SCH ×2 (08:57→21:24)
[2019-02-19] MEDS: WELCHOL PO SCH ×3 (08:57→19:07)
[2019-02-19] MEDS ORDERED: POTASSIUM CHLORIDE 60 MEQ in NS 500 ML IV ONE (09:00)
[2019-02-19] MEDS: CULTURELLE PO SCH ×2 (09:07→21:24)
[2019-02-19] MEDS: THERA M PLUS PO SCH (09:07)
[2019-02-19] MEDS: ZINC SULFATE PO SCH (09:08)
--- NOTE | 2019-02-19 10:50 | Diag Imaging Result Doc PS360 ---
XRAY HIP UNILATERAL RT - 02/19/2019 INDICATION: hip/leg pain TECHNIQUE: Two views COMPARISON: None FINDINGS: There is severe hip osteoarthritis with near complete loss of the joint space, osteophytes, sclerosis, irregularity, and flattening of the femoral head. No fracture or dislocation. There is some degeneration of the symphysis pubis. IMPRESSION: Severe osteoarthritis of the hip. Electronically signed by Nathan Whitaker 02/19/2019 10:47 AM
[2019-02-19] MEDS: ULTRAM PO PRN (13:23)
--- NOTE | 2019-02-19 17:55 | PROGRESS NOTE ---
DATE: 02/19/2019 SUBJECTIVE: The patient is resting in bed. She is still not eating. She is currently on TPN. OBJECTIVE: Vital Signs: Temperature 98.1, blood pressure 148/75, heart rate 76, respirations 24. O2 sats 100% on 2 L nasal cannula. General: This is an elderly female lying in bed in no acute distress. Heart: S1, S2 normal. Regular rate and rhythm. Lungs: Clear to auscultation bilaterally. No wheezing. No rales. No rhonchi. Abdomen: Positive bowel sounds. Soft, nontender, nondistended. Extremities: No edema, no cyanosis. No calf tenderness. Neurologic: The patient is awake and alert. LABS: White blood cell count 9.4, hemoglobin 8.5, hematocrit 27, platelets 202,000. Sodium 138, potassium 2.9, chloride 108, CO2 22, BUN 22, creatinine 0.5, glucose 162, albumin 2.4, total protein 5.8, magnesium 1.8. ASSESSMENT AND PLAN: 1. Colitis. The patient's stool is still liquid, but the frequency is decreased. Continue with the current regimen as directed by GI. 2. Urinary tract infection secondary to E coli. Continue on aztreonam. 3. Severe protein calorie malnutrition. Continue on TPN. Will also add Megace. 4. Hypokalemia. Likely secondary to the patient's diarrhea. We will replace the patient's potassium. 5. Hypomagnesemia. We will replace the patient's magnesium. 6. DVT prophylaxis. Continue on Lovenox. cc: Madeline Moffett MD
--- NOTE | 2019-02-19 18:45 | GASTROENTEROLOGY PROGRESS NOTE ---
DATE: 02/19/2019 SUBJECTIVE: Patient was awake. She was currently getting a Doppler ultrasound of her lower extremity at that time on my visit. Patient denies any significant complaint. She is very hard of hearing. No family was at the bedside. OBJECTIVE: Vital signs: Temperature 98.1 degrees, pulse 75, respirations 24, blood pressure 148/75. General: Patient is awake and alert. She is currently getting a Doppler of her lower extremity. LABORATORY: Hematology. WBC 9.47, hemoglobin 8.5, hematocrit 27.1, MCV 82.6, platelets 202,000. Chemistry. Sodium 138, potassium 2.9, chloride 108, CO2 of 22, BUN 22, creatinine 0.5, glucose 162. ASSESSMENT AND PLAN: 1. Diarrhea continuing with current management. Her stool frequency seems to have decreased but still reported as liquid. 2. Urinary tract infection on antibiotics. 3. History of colitis. Continue current management. 4. Severe protein calorie malnutrition. Patient is on total parenteral nutrition. She is not eating. I believe they will be adding Megace. We will continue to follow. Continue current medications. I have discussed this case with Dr. Lau. Dictated by JACI Ching for Shawn Lau MD cc: JACI Driver MD
[2019-02-19] MEDS: POTASSIUM CHLORIDE IV SCH ×10 (18:52)
[2019-02-19] MEDS: MAGNESIUM SULFATE IV SCH ×10 (18:52)
[2019-02-19] MEDS: [UNRECOGNIZED DRUG - OTHER] IV SCH ×10 (18:52)
[2019-02-19] MEDS: TPN ELECTROLYTES IV SCH ×10 (18:52)
[2019-02-19] MEDS: LIPOSYN 20% 250 ML IV SCH (18:52)
[2019-02-19] MEDS: MEGACE LIQUID PO SCH (21:23)
[2019-02-19] MEDS: LOVENOX SUBQ SCH (21:24)
[2019-02-20] MEDS: AZACTAM 0.5 GM in NS 50 ML IV SCH ×3 (05:43→23:42)
[2019-02-20 06:35] LABS: HEMATOCRIT 26.4 % (37.0-47.0); HEMOGLOBIN 8.1 g/dL (12.0-16.0); LYMPH# 0.81 X1000 (1.2-3.4); MCH 26.3 PG (27-31); MCHC 30.7 g/dL (33-37); MCV 85.7 FL (81-99); MONO# 1.06 X1000 (0.11-0.59); MONO% 11.7 % (1.7-9.3); MPV 10.8 FL (7.4-10.4); NEUT# 7.17 X1000 (1.4-6.5); NEUT% 79.3 % (42.2-75.2); PLT 210 X1000 (130-400); RBC 3.08 XMIL (4.2-5.4); RDW 16.2 % (11.5-14.5); WBC 9.04 X1000 (4.8-10.8)
[2019-02-20 07:10] LABS: AGAP 7; ALB/GLOB RATIO 0.7; ALBUMIN 2.3 g/dL (3.5-5.0); ALKALINE PHOSPHATASE 240 U/L (32-104); BUN 23 mg/dL (8-22); CHLORIDE 107 mmol/L (98-107); COSMO 281; CREATININE 0.5 mg/dL (0.5-0.9); ESTIMATED GFR > 60; GLUCOSE 164 mg/dL (70-104); GOT 20 U/L (10-30); GPT 25 U/L (10-36); PHOSPHORUS 2.6 mg/dL (2.7-4.5); POTASSIUM 3.2 mmol/L (3.5-5.1); SODIUM 137 mmol/L (136-145); TCO2 23 mmol/L (25-35); TOTAL BILIRUBIN 0.26 mg/dL (0.20-1.00); TOTAL PROTEIN 5.7 g/dL (6.3-8.3)
[2019-02-20] MEDS: WELCHOL PO SCH ×4 (09:01→18:19)
[2019-02-20] MEDS: ZINC SULFATE PO SCH (09:01)
[2019-02-20] MEDS: THERA M PLUS PO SCH (09:01)
[2019-02-20] MEDS: CULTURELLE PO SCH ×2 (09:01→19:59)
[2019-02-20] MEDS: DIFICID PO SCH ×2 (09:01→19:59)
[2019-02-20] MEDS: MEGACE LIQUID PO SCH ×2 (09:02→20:00)
[2019-02-20] MEDS ORDERED: POTASSIUM CHLORIDE 60 MEQ in NS 500 ML IV ONE (09:33)
[2019-02-20] MEDS ORDERED: D10W 1,000 ML IV SCH (13:30)
--- NOTE | 2019-02-20 15:24 | GASTROENTEROLOGY PROGRESS NOTE ---
DATE: 02/20/2019 SUBJECTIVE: Patient was asleep. She aroused easily. Per nurse report, she has had less frequent diarrhea but continues to have some small loose stools. OBJECTIVE: Vital Signs: Temperature 98.2 degrees, pulse 78, respirations 16, blood pressure 142/78. General: Patient was asleep, but aroused easily in no acute distress. LABORATORY: Hematology: WBC 9.04, hemoglobin 8.1, hematocrit 26.4, MCV 85.7, platelets 210,000. Chemistry: Sodium 137, potassium 3.2 chloride 107, CO2 of 23, BUN 23, creatinine 0.5 glucose 164. ASSESSMENT AND PLAN: 1. Diarrhea. The stool frequency and amount seem to have decreased. We will continue current medications. 2. Urinary tract infection. On antibiotics. 3. History of colitis. Continue current management. 4. Severe protein-calorie malnutrition. Continue parental nutrition. Encourage p.o. intake. I believe appetite stimulant, Megace has been added. We will continue to follow and further plans to be made according to her progress. I have discussed this case with Dr. Lau. Dictated by JACI Ching for Shawn Lau MD cc: JACI Driver MD
--- NOTE | 2019-02-20 16:03 | PROGRESS NOTE ---
DATE: 02/20/2019 SUBJECTIVE: The patient is resting comfortably in bed. No acute events noted overnight. OBJECTIVE: Vital Signs: Temperature 98.2 degrees blood pressure 142/70, heart rate 78, respirations 16, O2 saturations 100% on 2 L nasal cannula. General: This is a chronically ill- appearing elderly female, lying in bed in no acute distress. Heart: S1, S2 normal. Regular rate and rhythm. Lungs: Clear to auscultation bilaterally. Abdomen: Positive bowel sounds. Soft, nontender, nondistended. Extremities: No edema, no cyanosis. Neurologic: The patient is awake and alert. LABS: White blood cell count 9, hemoglobin 8.1, hematocrit 26, platelets 210. Sodium 137, potassium 3.2, chloride 107, CO2 23. BUN 23, creatinine 0.5, glucose 164, phos 2.6, albumin 2.3. ASSESSMENT AND PLAN: 1. Colitis. Continue on the current treatment regimen as directed by the unattended ground sensor specialist. 2. Urinary tract infection secondary to Escherichia coli. Continue on aztreonam. 3. Severe protein calorie malnutrition. Continue on total parenteral nutrition. The patient is also on Megace. 4. Hypokalemia. Continue to replace the potassium. 5. Anemia. The patient's hemoglobin and hematocrit are slowly trending downward. We will continue to monitor closely and transfuse as needed. 6. Deep vein thrombosis prophylaxis. Continue on Lovenox. cc: Madeline Moffett MD
[2019-02-20] MEDS: TPN ELECTROLYTES IV SCH ×9 (18:18)
[2019-02-20] MEDS: [UNRECOGNIZED DRUG - OTHER] IV SCH ×9 (18:18)
[2019-02-20] MEDS: POTASSIUM CHLORIDE IV SCH ×9 (18:18)
[2019-02-20] MEDS: MAGNESIUM SULFATE IV SCH ×9 (18:18)
[2019-02-20] MEDS: LIPOSYN 20% 250 ML IV SCH (18:52)
[2019-02-20] MEDS: ULTRAM PO PRN (19:59)
[2019-02-20] MEDS: LOVENOX SUBQ SCH (20:00)
[2019-02-21] MEDS: AZACTAM 0.5 GM in NS 50 ML IV SCH ×3 (04:59→21:31)
[2019-02-21 07:19] LABS: HEMATOCRIT 27.2 % (37.0-47.0); HEMOGLOBIN 8.4 g/dL (12.0-16.0); MCH 26.1 PG (27-31); MCHC 30.9 g/dL (33-37); MCV 84.5 FL (81-99); MPV 10.5 FL (7.4-10.4); RBC 3.22 XMIL (4.2-5.4); RDW 16.5 % (11.5-14.5); WBC 9.14 X1000 (4.8-10.8)
[2019-02-21 07:46] LABS: AGAP 8; BUN 26 mg/dL (8-22); CALCIUM 8.8 mg/dL (8.8-10.2); CHLORIDE 107 mmol/L (98-107); COSMO 282; CREATININE 0.4 mg/dL (0.5-0.9); ESTIMATED GFR > 60; GLUCOSE 156 mg/dL (70-104); PHOSPHORUS 2.8 mg/dL (2.7-4.5); POTASSIUM 3.5 mmol/L (3.5-5.1); SODIUM 137 mmol/L (136-145); TCO2 22 mmol/L (25-35)
--- NOTE | 2019-02-21 14:42 | PROGRESS NOTE ---
DATE: 02/21/2019 SUBJECTIVE: The patient is lethargic. She is not eating. OBJECTIVE: Vital Signs: Temperature 97.6 degrees, blood pressure 142/51, heart rate 77, respirations 16, O2 saturation is 97% on 2 L nasal cannula. General: This is a chronically ill- appearing, elderly female lying in bed, in no acute distress. Heart: S1, S2 normal. Regular rate and rhythm. Lungs: Clear to auscultation bilaterally. Abdomen: Positive bowel sounds. Soft, nontender, nondistended. Extremities: No edema. No cyanosis. Neurologic: The patient is lethargic and does not answer questions. LABS: Sodium 137, potassium 3.5, chloride 107, CO2 22, BUN 26, creatinine 0.6. Platelets 240,000, hemoglobin 8.4, hematocrit 27. ASSESSMENT AND PLAN: 1. Colitis. Continue with the current treatment regimen. 2. Urinary tract infection secondary to Escherichia coli. Continue on antibiotic therapy. 3. Protein calorie malnutrition. Continue with TPN. 4. Anemia. Stable. 5. Deep vein thrombosis prophylaxis. Continue on Lovenox. cc: Madeline Moffett MD
[2019-02-21] MEDS: CULTURELLE PO SCH ×2 (15:08→21:33)
[2019-02-21] MEDS: ZOLOFT PO SCH (15:08)
[2019-02-21] MEDS: DIFICID PO SCH ×2 (15:08→21:34)
[2019-02-21] MEDS: WELCHOL PO SCH ×3 (15:08→17:11)
[2019-02-21] MEDS: ZINC SULFATE PO SCH (15:08)
[2019-02-21] MEDS: THERA M PLUS PO SCH (15:09)
[2019-02-21] MEDS: MEGACE LIQUID PO SCH ×2 (15:09→21:34)
[2019-02-21] MEDS: TPN ELECTROLYTES IV SCH ×9 (17:27)
[2019-02-21] MEDS: MAGNESIUM SULFATE IV SCH ×9 (17:27)
[2019-02-21] MEDS: [UNRECOGNIZED DRUG - OTHER] IV SCH ×9 (17:27)
[2019-02-21] MEDS: LIPOSYN 20% 250 ML IV SCH (17:27)
[2019-02-21] MEDS: POTASSIUM CHLORIDE IV SCH ×9 (17:27)
[2019-02-21] MEDS: LOVENOX SUBQ SCH (21:31)
[2019-02-22] MEDS: AZACTAM 0.5 GM in NS 50 ML IV SCH ×3 (06:08→21:45)
[2019-02-22 07:06] LABS: BASO# 0.01 X1000 (0.0-0.2); BASO% 0.1 % (0.0-0.8); HEMATOCRIT 25.9 % (37.0-47.0); HEMOGLOBIN 8.2 g/dL (12.0-16.0); IMM GRAN% 0.9 % (0.0-0.5); LYMPH# 0.75 X1000 (1.2-3.4); LYMPH% 7.1 % (20.5-51.1); MCH 25.9 PG (27-31); MCHC 31.7 g/dL (33-37); MCV 81.7 FL (81-99); MONO# 1.09 X1000 (0.11-0.59); MONO% 10.3 % (1.7-9.3); MPV 10.3 FL (7.4-10.4); NEUT# 8.64 X1000 (1.4-6.5); NEUT% 81.6 % (42.2-75.2); PLT 271 X1000 (130-400); RBC 3.17 XMIL (4.2-5.4); RDW 16.1 % (11.5-14.5); WBC 10.59 X1000 (4.8-10.8)
[2019-02-22 07:41] LABS: AGAP 8; BUN 28 mg/dL (8-22); CALCIUM 9.2 mg/dL (8.8-10.2); CHLORIDE 105 mmol/L (98-107); COSMO 279; CREATININE 0.4 mg/dL (0.5-0.9); ESTIMATED GFR > 60; GLUCOSE 168 mg/dL (70-104); MAGNESIUM 2.1 mg/dL (1.5-2.7); PHOSPHORUS 3.2 mg/dL (2.7-4.5); SODIUM 135 mmol/L (136-145); TCO2 22 mmol/L (25-35)
[2019-02-22] MEDS ORDERED: POTASSIUM CHLORIDE 60 MEQ in NS 500 ML IV ONE (07:57)
[2019-02-22] MEDS: DIFICID PO SCH (10:16)
[2019-02-22] MEDS: MEGACE LIQUID PO SCH (10:16)
[2019-02-22] MEDS: CULTURELLE PO SCH (10:16)
[2019-02-22] MEDS: ZINC SULFATE PO SCH (10:16)
[2019-02-22] MEDS: WELCHOL PO SCH ×3 (10:16→16:50)
[2019-02-22] MEDS: ZOLOFT PO SCH (10:16)
[2019-02-22] MEDS: THERA M PLUS PO SCH (10:16)
--- NOTE | 2019-02-22 15:27 | GASTROENTEROLOGY PROGRESS NOTE ---
DATE: 02/22/2019 SUBJECTIVE: The patient is awake, but she did not speak. She would shake her head no when I asked her questions. She is in no acute distress. OBJECTIVE: Vital Signs: Temperature 98.2 degrees, pulse 89, respirations 16, blood pressure 147/72. General: The patient is awake in no acute distress. She did not speak today. Nurse states she has not noticed any diarrhea today. She states the patient will not eat. LABORATORY DATA: Hematology: WBC 10.59, hemoglobin 8.2, hematocrit 25.9, MCV 81.7, platelets 271,000. Chemistry: Sodium 135, potassium 3.0, chloride 105, CO2 of 22, BUN 28, creatinine 0.4, glucose 168. ASSESSMENT AND PLAN: 1. Colitis. The patient continues on antibiotics. Her diarrhea seems to have lessened. 2. Urinary tract infection, Escherichia coli on antibiotics. 3. Protein-calorie malnutrition. The patient is not eating. Continue enteral nutrition. 4. Gastroenterology will continue to follow. Further plans to be made according to the patient's progress. I have discussed this case with Dr. Lau. Dictated by JACI Ching for Shawn Lau MD cc: JACI Driver MD
[2019-02-22] MEDS: CALMOSEPTINE OINTMENT TOP PRN (16:51)
[2019-02-22] MEDS: ULTRAM PO PRN (17:23)
[2019-02-22] MEDS: LIPOSYN 20% 250 ML IV SCH (17:25)
[2019-02-22] MEDS: MAGNESIUM SULFATE IV SCH ×9 (18:23)
[2019-02-22] MEDS: POTASSIUM CHLORIDE IV SCH ×9 (18:23)
[2019-02-22] MEDS: TPN ELECTROLYTES IV SCH ×9 (18:23)
[2019-02-22] MEDS: [UNRECOGNIZED DRUG - OTHER] IV SCH ×9 (18:23)
--- NOTE | 2019-02-22 19:31 | PROGRESS NOTE ---
DATE: 02/22/2019 SUBJECTIVE: The patient is lying in bed. She is depressed. She will not speak. She will not eat, and she will not take her medications. OBJECTIVE: Vital Signs: Temperature 98 degrees, blood pressure is 143/58, heart rate 80, respirations 16, O2 saturation is 100% on 2 L nasal cannula. General: This is an elderly female, lying in bed in no acute distress. Heart: S1, S2 normal. Regular rate and rhythm. Lungs: Clear to auscultation bilaterally. Abdomen: Positive bowel sounds. Soft, nontender, nondistended. Extremities: No edema, no cyanosis. Neurologic: The patient is alert, but depressed with a flat affect. She is nonverbal. LABORATORY DATA: Sodium 135, potassium 3, chloride 105, CO2 is 22, BUN 28, creatinine 0.4. White blood cell count 10.5, hemoglobin 8.2, hematocrit 25, platelets 271,000. ASSESSMENT AND PLAN: 1. Colitis. The patient has only had one bowel movement so far today. Gastroenterology is following. Continue on Dificid. 2. Urinary tract infection secondary to Escherichia coli. Continue with antibiotic therapy. 3. Protein-calorie malnutrition. Continue with total parenteral nutrition. 4. Anemia. Stable. 5. Depression. We will start the patient on Zoloft. 6. Deep vein thrombosis prophylaxis. Continue on Lovenox. cc: Madeline Moffett MD
--- NOTE | 2019-02-22 19:58 | Extremity Venous Study ---
PROCEDURE NAME: Venous U/S Right Leg - 02/19/2019 Pain in the right leg. Right lower extremity is imaged. The common femoral, superficial femoral, deep femoral, popliteal, posterior tibial, peroneal, greater saphenous veins are imaged. The left common femoral vein is imaged for comparison purposes. Doppler is used to evaluate the veins for spontaneity, phasicity, respiratory excursion, distal augmentation. All veins are compressible. No intraluminal clot is seen. INTERPRETATION: No evidence of deep or superficial venous thrombosis in the right lower extremity veins identified. cc: MD Jignesh Browning MD
[2019-02-22] MEDS: LOVENOX SUBQ SCH (21:45)
[2019-02-23] MEDS: CULTURELLE PO SCH ×3 (00:59→20:55)
[2019-02-23] MEDS: DIFICID PO SCH ×3 (01:00→20:56)
[2019-02-23] MEDS: MEGACE LIQUID PO SCH ×3 (01:00→20:57)
[2019-02-23] MEDS: AZACTAM 0.5 GM in NS 50 ML IV SCH ×4 (06:04→21:03)
[2019-02-23 07:02] LABS: BASO# 0.01 X1000 (0.0-0.2); BASO% 0.1 % (0.0-0.8); HEMOGLOBIN 7.8 g/dL (12.0-16.0); IMM GRAN% 0.8 % (0.0-0.5); LYMPH# 0.81 X1000 (1.2-3.4); LYMPH% 6.5 % (20.5-51.1); MCH 25.7 PG (27-31); MCHC 31.2 g/dL (33-37); MCV 82.5 FL (81-99); MONO# 1.04 X1000 (0.11-0.59); MONO% 8.4 % (1.7-9.3); MPV 10.1 FL (7.4-10.4); NEUT# 10.47 X1000 (1.4-6.5); NEUT% 84.2 % (42.2-75.2); PLT 294 X1000 (130-400); RBC 3.03 XMIL (4.2-5.4); RDW 16.3 % (11.5-14.5); WBC 12.43 X1000 (4.8-10.8)
[2019-02-23 07:26] LABS: PREALBUMIN 7.2 mg/dL (20-40)
[2019-02-23 07:29] LABS: AGAP 7; ALB/GLOB RATIO 0.6; ALBUMIN 2.1 g/dL (3.5-5.0); ALKALINE PHOSPHATASE 266 U/L (32-104); BUN 29 mg/dL (8-22); CALCIUM 9.5 mg/dL (8.8-10.2); CHLORIDE 111 mmol/L (98-107); COSMO 287; CREATININE 0.5 mg/dL (0.5-0.9); ESTIMATED GFR > 60; GLUCOSE 166 mg/dL (70-104); GOT 31 U/L (10-30); GPT 45 U/L (10-36); POTASSIUM 3.7 mmol/L (3.5-5.1); SODIUM 139 mmol/L (136-145); TCO2 21 mmol/L (25-35); TOTAL PROTEIN 5.8 g/dL (6.3-8.3)
[2019-02-23] MEDS: ZINC SULFATE PO SCH (10:16)
[2019-02-23] MEDS: WELCHOL PO SCH ×3 (10:16→18:22)
[2019-02-23] MEDS: THERA M PLUS PO SCH (10:16)
[2019-02-23] MEDS: ZOLOFT PO SCH (10:17)
--- NOTE | 2019-02-23 17:56 | PROGRESS NOTE ---
DATE: 02/23/2019 SUBJECTIVE: The patient is resting. She still refuses to eat or take any of her medications. OBJECTIVE: Vital Signs: Temperature 98.3 degrees, blood pressure 163/58, heart rate 80, respirations 18, O2 saturations 100% on 3 L nasal cannula. General: This is a chronically ill- appearing female lying in bed in no acute distress. Heart: S1, S2 normal. Regular rate and rhythm. Lungs: Clear to auscultation bilaterally. Abdomen: Positive bowel sounds. Soft, nontender, nondistended. Extremities: No edema, no cyanosis. Neuro: The patient is awake and alert. LABS: White blood cell count 12, hemoglobin 7.8, hematocrit 25, platelets 294,000, sodium 139, potassium 3.7, chloride 111, CO2 21, BUN 29, creatinine 0.5, glucose 166, AST 31, ALT 45, alkaline phosphatase 266. ASSESSMENT AND PLAN: 1. Colitis. Continue on Dificid. 2. Severe protein calorie malnutrition. The patient is refusing all medications and food. Will place an NG tube and start the patient on tube feeds. Will then discontinue TPN. 3. Urinary tract infection secondary to Escherichia coli. Continue with antibiotic therapy. 4. Anemia. Stable. 5. Depression. Will resume the Zoloft once the NG tube is in place. 6. Deep vein thrombosis prophylaxis. Continue on Lovenox. 7. Disposition. I updated the patient's daughter on the patient's medical condition. cc: Madeline Moffett MD
[2019-02-23] MEDS: [UNRECOGNIZED DRUG - OTHER] IV SCH ×9 (18:31)
[2019-02-23] MEDS: LIPOSYN 20% 250 ML IV SCH (18:31)
[2019-02-23] MEDS: TPN ELECTROLYTES IV SCH ×9 (18:31)
[2019-02-23] MEDS: POTASSIUM CHLORIDE IV SCH ×9 (18:31)
[2019-02-23] MEDS: MAGNESIUM SULFATE IV SCH ×9 (18:31)
--- NOTE | 2019-02-23 19:32 | Diag Imaging Result Doc PS360 ---
CHEST-PORTABLE - 02/23/2019 INDICATION: confirm ng placement COMPARISON: 02/16/2019 FINDINGS: There is a new nasogastric tube in good position in the stomach. Stable left central line. The left central line projects over the aorta. Please ensure that this is actually venous in position and not in the aorta. IMPRESSION: Good nasogastric tube placement. Indeterminate positioning of the left central line tip. Please ensure this is not arterial. Electronically signed by Nathan Whitaker 02/23/2019 7:30 PM
[2019-02-23] MEDS: ULTRAM PO PRN (20:55)
[2019-02-23] MEDS: LOVENOX SUBQ SCH (20:57)
[2019-02-23] MEDS: LABETALOL IV PRN (21:21)
[2019-02-24] MEDS: AZACTAM 0.5 GM in NS 50 ML IV SCH (05:49)
[2019-02-24] MEDS: ULTRAM PO PRN ×2 (06:02→22:43)
[2019-02-24 07:03] LABS: BASO# 0.01 X1000 (0.0-0.2); BASO% 0.1 % (0.0-0.8); HEMATOCRIT 23.9 % (37.0-47.0); HEMOGLOBIN 7.3 g/dL (12.0-16.0); IMM GRAN# 0.15 X1000 (0.0-0.04); IMM GRAN% 1.3 % (0.0-0.5); LYMPH# 0.92 X1000 (1.2-3.4); MCH 25.3 PG (27-31); MCHC 30.5 g/dL (33-37); MCV 82.7 FL (81-99); MONO# 1.05 X1000 (0.11-0.59); MONO% 9.1 % (1.7-9.3); MPV 10.5 FL (7.4-10.4); NEUT# 9.42 X1000 (1.4-6.5); NEUT% 81.5 % (42.2-75.2); PLT 306 X1000 (130-400); RBC 2.89 XMIL (4.2-5.4); RDW 16.2 % (11.5-14.5); WBC 11.55 X1000 (4.8-10.8)
[2019-02-24 07:12] LABS: AGAP 8; ALB/GLOB RATIO 0.5; ALKALINE PHOSPHATASE 294 U/L (32-104); BUN 32 mg/dL (8-22); CALCIUM 9.7 mg/dL (8.8-10.2); CHLORIDE 110 mmol/L (98-107); COSMO 290; CREATININE 0.5 mg/dL (0.5-0.9); ESTIMATED GFR > 60; GLUCOSE 163 mg/dL (70-104); GOT 41 U/L (10-30); GPT 66 U/L (10-36); POTASSIUM 3.5 mmol/L (3.5-5.1); SODIUM 140 mmol/L (136-145); TCO2 22 mmol/L (25-35); TOTAL BILIRUBIN 0.24 mg/dL (0.20-1.00); TOTAL PROTEIN 5.8 g/dL (6.3-8.3)
[2019-02-24] MEDS: ZINC SULFATE PO SCH (08:39)
[2019-02-24] MEDS: MEGACE LIQUID PO SCH ×2 (08:39→22:44)
[2019-02-24] MEDS: DIFICID PO SCH ×2 (08:39→22:43)
[2019-02-24] MEDS: ZOLOFT PO SCH (08:39)
[2019-02-24] MEDS: THERA M PLUS PO SCH (08:39)
[2019-02-24] MEDS: WELCHOL PO SCH ×3 (08:40→16:52)
[2019-02-24] MEDS: CULTURELLE PO SCH ×2 (08:40→22:43)
--- NOTE | 2019-02-24 12:51 | PROGRESS NOTE ---
DATE: 02/24/2019 SUBJECTIVE: The patient remains in bed. She refuses all medications and food. OBJECTIVE: Vital Signs: Temperature 98 degrees, blood pressure 131/55, heart rate 79, respirations 16, O2 saturation is 100% on 3 L nasal cannula. General: This is a chronically ill- appearing, elderly female lying in bed, in no acute distress. Heart: S1, S2 normal. Regular rate and rhythm. Lungs: Clear to auscultation bilaterally. Abdomen: Positive bowel sounds. Soft, nontender, nondistended. Extremities: No edema, no cyanosis. Neurologic: The patient is awake but will not answer questions. Labs: White blood cell count 11, hemoglobin 7.3, hematocrit 23, platelets 306,000. Sodium 140, potassium 3.5, chloride 110, CO2 22, BUN 32, creatinine 0.5, glucose 163. AST 41, ALT 66, alkaline phosphatase 294. ASSESSMENT AND PLAN: 1. Colitis. Improved. Continue on Dificid. 2. Severe protein calorie malnutrition. Nasogastric tube feeds will be started today. We will then wean off the total parenteral nutrition. 3. Urinary tract infection secondary to Escherichia coli. The patient has completed 7 days of antibiotic therapy. Will discontinue the azactam. 4. Depression. Continue on Zoloft. 5. Anemia. The patient's hemoglobin and hematocrit are trending downward. We will transfuse as necessary. 6. Deep vein thrombosis prophylaxis. Continue on Lovenox. 7. Disposition. The patient will likely need inpatient rehab placement. cc: Madeline Moffett MD [facility]
[2019-02-24] MEDS: LOVENOX SUBQ SCH (22:43)
[2019-02-25 07:37] LABS: BASO# 0.01 X1000 (0.0-0.2); BASO% 0.1 % (0.0-0.8); HEMATOCRIT 25.2 % (37.0-47.0); HEMOGLOBIN 7.6 g/dL (12.0-16.0); IMM GRAN# 0.13 X1000 (0.0-0.04); IMM GRAN% 1.1 % (0.0-0.5); LYMPH# 0.99 X1000 (1.2-3.4); LYMPH% 8.7 % (20.5-51.1); MCH 25.2 PG (27-31); MCHC 30.2 g/dL (33-37); MCV 83.7 FL (81-99); MONO# 1.05 X1000 (0.11-0.59); MONO% 9.3 % (1.7-9.3); NEUT# 9.14 X1000 (1.4-6.5); NEUT% 80.8 % (42.2-75.2); PLT 358 X1000 (130-400); RBC 3.01 XMIL (4.2-5.4); RDW 16.3 % (11.5-14.5); WBC 11.32 X1000 (4.8-10.8)
[2019-02-25 07:39] LABS: MAGNESIUM 2.1 mg/dL (1.5-2.7); PHOSPHORUS 3.4 mg/dL (2.7-4.5)
[2019-02-25 07:44] LABS: AGAP 9; ALB/GLOB RATIO 0.6; ALBUMIN 2.4 g/dL (3.5-5.0); ALKALINE PHOSPHATASE 309 U/L (32-104); BUN 33 mg/dL (8-22); CALCIUM 10.3 mg/dL (8.8-10.2); CHLORIDE 107 mmol/L (98-107); COSMO 286; CREATININE 0.5 mg/dL (0.5-0.9); ESTIMATED GFR > 60; GLUCOSE 122 mg/dL (70-104); GOT 37 U/L (10-30); GPT 67 U/L (10-36); POTASSIUM 3.7 mmol/L (3.5-5.1); SODIUM 139 mmol/L (136-145); TCO2 23 mmol/L (25-35); TOTAL BILIRUBIN 0.45 mg/dL (0.20-1.00); TOTAL PROTEIN 6.2 g/dL (6.3-8.3)
[2019-02-25] MEDS: CULTURELLE PO SCH ×2 (09:25→22:09)
[2019-02-25] MEDS: ZOLOFT PO SCH (09:25)
[2019-02-25] MEDS: MEGACE LIQUID PO SCH ×2 (09:25→22:09)
[2019-02-25] MEDS: DIFICID PO SCH ×2 (09:26→22:09)
[2019-02-25] MEDS: WELCHOL PO SCH ×4 (09:26→17:58)
[2019-02-25] MEDS: THERA M PLUS PO SCH (09:26)
[2019-02-25] MEDS: ZINC SULFATE PO SCH (09:26)
--- NOTE | 2019-02-25 09:28 | Diag Imaging Result Doc PS360 ---
EXAM: CHEST-PORTABLE 02/25/2019 HISTORY: check PICC line placement TECHNIQUE: AP portable semiupright at 0851 COMMENT: There is an NG tube with its tip below the diaphragm. There is a PICC line on the left with its tip at the confluence of the brachiocephalic veins. There is atelectasis versus pneumonia in the left lower lobe. This has not changed since 02/23/2019. IMPRESSION: PICC line in the proximal superior vena cava. Atelectasis versus pneumonia left lower lobe. Electronically signed by Gianluca Lackey 02/25/2019 9:26 AM
[2019-02-25 09:40] LABS: URINE SOURCE CATH
[2019-02-25 09:47] LABS: BILIRUBIN URINE NEGATIVE (NEGATIVE); BLOOD URINE NEGATIVE (NEGATIVE); COLOR YELLOW; GLUCOSE URINE NEGATIVE (NEGATIVE); KETONE URINE NEGATIVE (NEGATIVE); LEUKOCYTES URINE NEGATIVE (NEGATIVE); NITRITE URINE NEGATIVE (NEGATIVE); PROTEIN URINE 30 mg/dL (NEGATIVE); SP GRAVITY URINE 1.016; TURBIDITY URINE CLEAR (CLEAR); UROBILINOGEN URINE NORMAL (NORMAL)
[2019-02-25 09:55] LABS: UR EPITHELIAL CELLS <10 /HPF (<10); URINE BACTERIA NEGATIVE /HPF; URINE RBC <10 /HPF (<10); URINE WBC <10 /HPF (<10)
[2019-02-25 10:00] LABS: URINE CASTS GRANULAR PRESENT
--- NOTE | 2019-02-25 15:17 | Diag Imaging Result Doc PS360 ---
EXAM: US ABDOMEN-COMPLETE 02/25/2019 HISTORY: elevated liver function tests TECHNIQUE: Abdominal ultrasound COMMENT: The visualized portions of the aorta and inferior vena cava are within normal limits. There is antegrade flow in the portal vein. The spleen is not enlarged. The gallbladder is surgically absent. There is no evidence of biliary dilatation the common bile duct measuring 4 mm. The liver is unremarkable in appearance. The pancreas is obscured. There is a 2.4 cm cyst in the right kidney. There is no evidence of hydronephrosis or mass. There are no abnormal fluid collections. IMPRESSION: No evidence of acute disease. Electronically signed by Gianluca Lackey 02/25/2019 3:14 PM
--- NOTE | 2019-02-25 16:17 | PROGRESS NOTE ---
DATE: 02/25/2019 SUBJECTIVE: The patient is resting in bed. She continues to refuse all medications by mouth and any type of nutrition. OBJECTIVE: Vital Signs: Temperature 98 degrees, blood pressure 108/84, heart rate 71, respirations 16, O2 saturation is 95% on 3 L nasal cannula. General: This is an elderly female, lying in bed in no acute distress. Heart: S1, S2 normal, regular rate and rhythm. Lungs: Equal air entry bilaterally. No crackles. No rales. Abdomen: Positive bowel sounds. Soft, nontender, nondistended. Extremities: No edema, no cyanosis. Neurologic: The patient is awake and alert, but nonverbal. LABORATORIES: Reviewed. ASSESSMENT AND PLAN: 1. Colitis. Continue on Dificid. Gastroenterology is following. 2. Urinary tract infection secondary to Escherichia coli. Resolved. 3. Severe protein-calorie malnutrition. The patient is currently receiving nasogastric tube feeds. 4. Gastrointestinal prophylaxis. Continue on Protonix. 5. Deep vein thrombosis prophylaxis. Continue on Lovenox. DISPOSITION: The patient is refusing all medications and nutrition at this time. Palliative Care will be talking with the patient's daughter to address goals of care. The patient is a DNR level 1. cc: Madeline Moffett MD [facility]
--- NOTE | 2019-02-25 17:31 | GASTROENTEROLOGY PROGRESS NOTE ---
DATE: 02/25/2019 SUBJECTIVE: Patient was lying in bed in no acute distress. She was a little more alert today than she was on Monday when she was seen. She was speaking but it is difficult to fully understand everything she was saying. Apparently, she is continuing to not eat and had a nasogastric feeding tube placed, receiving feedings at 25 mL an hour. OBJECTIVE: Vital Signs: Temperature 97.9 degrees, pulse 84, respirations 24, blood pressure 134/56. General: Patient is awake, in no acute distress. LABORATORY: Hematology 11.3 to hemoglobin 7.6, hematocrit 25.2, MCV 83.7, platelet 358,000. Chemistry: Sodium 139, potassium 3.7, chloride 107, CO2 of 23, BUN 33, creatinine 0.5, glucose 122, calcium 10.3, phosphorus 3.4, magnesium 2.1. ASSESSMENT AND PLAN: 1. Colitis continuing antibiotics. 2. Escherichia coli urinary tract infection. Patient was treated. 3. Severe protein calorie malnutrition. Patient was not eating. The patient has had a nasogastric tube placed with feedings infusing. We will continue to follow. Would recommend physical therapy to assist with strength training. We will follow along and further plans will be made as needed. Patient was also seen by Dr. Lau. Dictated by JACI Ching for Shawn Lau MD cc: JACI Driver MD
[2019-02-25] MEDS: ULTRAM PO PRN (17:58)
[2019-02-25] MEDS: LOVENOX SUBQ SCH (22:08)
[2019-02-25] MEDS: HYDROCODONE/APAP 7.5-325/15 ML PO PRN (22:09)
[2019-02-26 06:53] LABS: HEMATOCRIT 24.5 % (37.0-47.0); HEMOGLOBIN 7.4 g/dL (12.0-16.0); MCH 25.9 PG (27-31); MCHC 30.2 g/dL (33-37); MCV 85.7 FL (81-99); MPV 10.6 FL (7.4-10.4); RBC 2.86 XMIL (4.2-5.4); RDW 16.4 % (11.5-14.5); WBC 10.32 X1000 (4.8-10.8)
[2019-02-26 07:22] LABS: AGAP 3; ALB/GLOB RATIO 0.6; ALBUMIN 2.2 g/dL (3.5-5.0); ALKALINE PHOSPHATASE 280 U/L (32-104); BUN 31 mg/dL (8-22); CALCIUM 10.4 mg/dL (8.8-10.2); CHLORIDE 105 mmol/L (98-107); COSMO 284; CREATININE 0.5 mg/dL (0.5-0.9); ESTIMATED GFR > 60; GLUCOSE 133 mg/dL (70-104); GOT 17 U/L (10-30); GPT 47 U/L (10-36); MAGNESIUM 1.9 mg/dL (1.5-2.7); PHOSPHORUS 3.1 mg/dL (2.7-4.5); POTASSIUM 3.4 mmol/L (3.5-5.1); SODIUM 138 mmol/L (136-145); TCO2 30 mmol/L (25-35); TOTAL BILIRUBIN 0.39 mg/dL (0.20-1.00); TOTAL PROTEIN 6.1 g/dL (6.3-8.3)
[2019-02-26] MEDS: CULTURELLE PO SCH (10:54)
[2019-02-26] MEDS: WELCHOL PO SCH ×2 (10:54→14:05)
[2019-02-26] MEDS: ZINC SULFATE PO SCH (10:54)
[2019-02-26] MEDS: HYDROCODONE/APAP 7.5-325/15 ML PO PRN (10:54)
[2019-02-26] MEDS: ZOLOFT PO SCH (10:54)
[2019-02-26] MEDS: DIFICID PO SCH (10:54)
[2019-02-26] MEDS: THERA M PLUS PO SCH (10:54)
[2019-02-26] MEDS: MEGACE LIQUID PO SCH (10:56)
[2019-02-26 11:18] VITALS: BP 156/51
--- NOTE | 2019-02-26 18:11 | GASTROENTEROLOGY PROGRESS NOTE ---
DATE: 02/26/2019 SUBJECTIVE: Patient is awake. She followed my commands. Her family was at the bedside. I have spoke with the daughter. She states they plan to take her home on hospice. OBJECTIVE: Vital Signs: Temperature 95.6 degrees, pulse 77, respirations 14, blood pressure 156/51. LABORATORY: Hematology: WBC 10.32, hemoglobin 7.4, hematocrit 24.5, MCV 85.7, platelets 373,000. Chemistry: Sodium 138, potassium 3.4, chloride 105, CO2 of 32, BUN 31, creatinine 0.5, glucose 133. ASSESSMENT AND PLAN: 1. Colitis. Patient is on antibiotics. 2. Escherichia coli urinary tract infection. Patient was treated. 3. Severe protein-calorie malnutrition. Patient was not eating. An NG-tube was placed, with feedings infusing. The family has decided to take the patient on hospice. Gastroenterology will be available as needed. I have discussed this case with Dr. Lau. Dictated by JACI Ching for Shawn Lau MD cc: JACI Driver MD
--- NOTE | 2019-02-26 19:27 | DISCHARGE SUMMARY ---
ADMISSION DATE: 02/12/2019 DISCHARGE DATE: 02/26/2019 DISCHARGE DIAGNOSES: 1. Colitis with unclear etiology. 2. Escherichia coli urinary tract infection. 3. Severe protein-calorie malnutrition with dysphagia. 4. Iron deficiency anemia. 5. Dementia. HISTORY AND HOSPITAL COURSE: Briefly, this is an 88-year-old female who was transferred from [facility]. She has had 2 admissions for colitis previously, which have not improved. She has been on vancomycin, but her testing was really unremarkable. Her colonoscopy does not reveal a clear source either. Her C difficile testing, which was done on the was negative for both antigen and toxin. Blood culture, O and P, all those tests were negative. She did have an E coli UTI for which she was treated. Dr. Lau was consulted, which I think was the main reason she was transferred. I do not think she had any more procedures completed. Testing was really unremarkable. She had extremity ultrasound, which was negative, abdominal ultrasound, which I believe was negative. The patient's workup was essentially negative, and she was felt stable for discharge. After further conversations with the family, though, they elected to pursue for hospice management. They did start NG tube placement for feeding. She had been maintained on tube feeds. After further discussion with the palliative care service, the patient did feel that she was terminal and that they did not want to pursue continued aggressive care. She did get 7 days of Azactam for her UTI. Plan was to continue to get treatment and see how she does, but anticipate discharge home on Pravachol 20, Imodium as needed, Celebrex 200, dicyclomine 20 q.8, Pepcid 20 b.i.d., hydrochlorothiazide 12.5 daily, methenamine 0.5 daily, multivitamin daily, slow iron 140 daily, trazodone 50 at bedtime. DISCHARGE CONDITION: Stable. She will be discharged to go home with pain control. Follow up with her PCP. TIME SPENT: 32-minute discharge. cc: Jignesh Alexander MD
[2019-02-26] MEDS ORDERED: PRAVACHOL PO SCH (21:00)
[2019-02-26] MEDS ORDERED: DESYREL PO SCH (21:00)
[2019-02-26] MEDS ORDERED: PEPCID PO SCH (21:00)
[2019-02-27] MEDS ORDERED: HYDROCHLOROTHIAZIDE PO SCH (09:00)
[2019-02-27] MEDS ORDERED: SLOW-FE PO SCH (09:00)
[2019-02-27] MEDS ORDERED: THERA M PLUS PO SCH (09:00)
== END 2019-02-26 17:13 | disposition hospice, home (50) | DRG 391 ==
LOC: SUATTDRO 20:53 → 4N 20:53
PROVIDERS: ATTEND Internal Medicine
CPT/HCPCS: 71010; 71045; 73502; 76700; 80048; 80053; 80069; 80076; 81001; 82248; 82270; 82438; 82465; 82728; 82948; 83540; 83550; 83735; 84100; 84132; 84134; 84207; 84252; 84302; 84425; 84443; 84446; 84450; 84478; 84590; 84591; 84630; 84999; 85025; 85027; 85651; 86140; 87040; 87045; 87046; 87077; 87088; 87177; 87186; 87324; 87449; 88313; 93005; 93971; 94760; 94761; 94799; 97110; 97162; 99999; A9270; J1650; J3475; J3480; J7040; J7120; S0073; S0179; XXXXX